=== PATIENT | male | born 1960 | race Caucasian/White ===

== ENCOUNTER 2025-02-13 07:09 | Outpatient (CLI) | payer OTHER, SELFPAY ==
--- NOTE | 2025-02-13 | ECG_ITS ---
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 The perfusion scan will be documented separately. DATA: Baseline heart rate was 46 beats per minute. Baseline blood pressure was 150/84 millimeters of mercury. Target heart rate was 156. Maximum heart rate achieved was 79. which was 50 % of the predicted target heart rate. Maximum blood pressure was 150/84 millimeters of mercury. The reason for ending the test was completion of the protocol. The patient did not experience any symptoms. ELECTROCARDIOGRAM: BASELINE: Sinus bradycardia. Normal axis. Otherwise, no ST-T changes suggestive of ischemia noted. No arrhythmia noted. EXERCISE: After Lexiscan injection, no ST-T changes suggestive of ischemic noted. No arrhythmia noted. CONCLUSION: Please note due to baseline abnormality of the EKG specificity and sensitivity of the EKG portion of LexiScan MIBI stress test will be low 1. EKG not suggestive of ischemia 2. Lexiscan injection unremarkable. 3. Perfusion scan will be documented separately. Electronically Signed On 03-06-2025 22:10:38 CDT by MARK VELÁZQUEZ [email or web address]
[2025-02-13 07:14] VITALS: BMI 26.6
--- NOTE | 2025-02-13 07:16 | NMCV_ITS ---
NM betina perf SPECT r/s* [id number] Cayden Meneses Age: 64 Gender: M : 1960 Exam Date: 02/13/2025 08:19 Ordering Phys: Shadia Finley Technologist: MIGUEL ANGEL Willard Exam Location: [facility] Indications: cp STRESS TEST Please see separate stress test report in [facility] for full findings IMAGE PROTOCOL Rest/Stress 1 Lexiscan Day Radiopharmaceutical Dose (mCi) Administration Site Administered by Rest: Tc-99m 11 IV Anaid Kiser AQUATIC ECOLOGIST Sestamibi Stress:Tc-99m 32.7 IV Anaid Kiser, AQUATIC ECOLOGIST Sestamibi Rest: 13-Feb-2025 60 Discovery 630 Stress: 13-Feb-2025 30 Discovery 630 0.4mg Lexiscan. Images obtained in supine and prone position. SPECT RESULTS Technical Quality: Good Raw Data Analysis: Normal Image Corrections: No attenuation or motion correction applied Summed Stress Score: 0 Summed Rest Score: 0 Summed Difference Score: 0 PERFUSION FINDINGS FUNCTIONAL RESULTS (calculated via Gated SPECT) Stress Image LV EF (%): 65 Stress EDV (mL):102 TID: 1.07 Stress ESV (mL):36 FUNCTIONAL FINDINGS: There is normal left ventricular systolic function. IMPRESSIONS Myocardial perfusion imaging is normal. Gerber Delgado MD (Electronically Signed) Final Date: 15 Feb 2025 21:34 S
[2025-02-13] MEDS: regadenoson 0.4 Mg/5 ml Syringe IVP (09:09)
[2025-02-13 11:18] VITALS: BP 125/77; PULSE 60
== END 2025-02-13 07:10 | disposition home or self-care (01) ==
PROVIDERS: PCP Nurse Practitioner Family; Visit Provider Nurse Practitioner Family
DX: R06.09 Other forms of dyspnea (principal); R07.89 Other chest pain
CPT/HCPCS: 36415; 78452; 93017; 96374; A9500; J2785